=== PATIENT | female | born 1995 | race Caucasian/White ===

== ENCOUNTER → 2023-09-15 | Day surgery (SDC) ==
[~2023-09-15] MED LIST: Lidocaine PF 2% (20 MG/ML) 5 ML VIAL ONE; NS 10 ML IV ONE; Ondansetron 4 MG/2 ML VIAL ONE; dexAMETHasone 10 MG/ML VIAL ONE; diphenhydrAMINE 50 MG/ML 1 ML VIAL ONE; fentaNYL 50 MCG/ML 2 ML VIAL ONE
== END ==
LOC: SDCO 07:10
DX: M94.261 Chondromalacia, right knee (principal); F17.290 Nicotine dependence, other tobacco product, uncomplicated
CPT/HCPCS: J0690; J1100; J1200; J2405; J2704; J3010